=== PATIENT | male | born 1985 | race Hispanic/Latino ===

== ENCOUNTER 2021-11-26 22:13 | Emergency (ER) | payer SELFPAY ==
[2021-11-26] MEDS ORDERED: Bacitracin 1 PK ONE (22:55)
[2021-11-26] MEDS ORDERED: Cephalexin 500 MG CAP ONE (22:55)
[2021-11-26] MEDS ORDERED: XYLOCAINE 2%-EPI 1:100,000 20 ML VIAL ONE (22:56)
[2021-11-26] MEDS ORDERED: Boostrix 0.5 ML (Tdap) VIAL ONE (22:56)
[2021-11-26] MEDS ORDERED: Lidocaine 2% 20 ml MDV ONE (22:57)
== END 2021-11-26 23:55 | disposition home or self-care (01) ==
LOC: MADERS 22:13
DX: S61.411A Laceration without foreign body of right hand, initial encounter (principal); F10.129 Alcohol abuse with intoxication, unspecified; F17.210 Nicotine dependence, cigarettes, uncomplicated; W18.30XA Fall on same level, unspecified, initial encounter; W26.8XXA Contact with other sharp object(s), not elsewhere classified, initial encounter; Z23 Encounter for immunization
CPT/HCPCS: 12002; 90471; 90715